=== PATIENT | female | born 1965 | race Caucasian/White ===

== ENCOUNTER 2024-04-04 09:41 | Emergency (ER) | payer OTHER ==
[2024-04-04] MEDS: Lactated Ringers 1,000 ML IV ONE (10:20)
[2024-04-04 10:23] LABS: BASOPHILS ABSOLUTE AUTO 0.01 K/uL (0.02-0.10); BASOPHILS PERCENT AUTO 0.2 % (0.0-0.5); EOSINOPHILS ABSOLUTE AUTO 0.06 K/uL (0.04-0.40); HEMATOCRIT 37.7 % (37.0-47.0); HEMOGLOBIN 13.5 g/dL (11.5-16.5); LYMPHOCYTES ABSOLUTE AUTO 1.36 K/uL (1.50-4.00); LYMPHOCYTES PERCENT AUTO 23.1 % (20.0-40.0); MEAN CORPUSCULAR HEMOGLOBIN 31.2 pg (27.0-32.0); MEAN CORPUSCULAR HGB CONC 35.8 g/dL (31.0-35.0); MEAN CORPUSCULAR VOLUME 87 fL (76-96); MEAN PLATELET VOLUME 8.5 fL (6.0-10.0); MONOCYTES ABSOLUTE AUTO 0.48 K/uL (0.20-0.80); MONOCYTES PERCENT AUTO 8.1 % (3.0-10.0); NEUTROPHILS ABSOLUTE AUTO 3.99 K/uL (2.00-7.50); NEUTROPHILS PERCENT AUTO 67.6 % (45.0-70.0); PLATELET COUNT,PLT 151 K/uL (150-500); RED BLOOD CELL COUNT 4.33 M/uL (3.80-5.80); RED CELL DISTRIBUTION WIDTH 11.8 % (11.0-16.0); WHITE BLOOD CELL COUNT,WBC 5.9 K/uL (4.0-11.0)
[2024-04-04] MEDS: Ondansetron 4 MG/2 ML SDV IVPUSH ONE (10:24)
[2024-04-04 10:33] LABS: ANION GAP 18.9 mmol/L (5.0-15.0); BUN/CREATININE RATIO 15.8 (6-25); CARBON DIOXIDE,CO2 22.9 mmol/L (21.0-32.0); CREATININE 0.57 mg/dL (0.55-1.02); EST CRCL DRUG DOSING (CG) 109.85 mL/min; POTASSIUM,K 3.8 mmol/L (3.5-5.1)
[2024-04-04] MEDS: LORazepam 0.5 MG Tab ONE ×2 (11:58→12:00)
[2024-04-04] MEDS: LORazepam 0.5 MG Tab PO ONE (12:00)
== END 2024-04-04 12:03 | disposition home or self-care (01) ==
LOC: LB.ED 09:41
DX: F32.2 Major depressive disorder, single episode, severe without psychotic features (principal); L24.3 Irritant contact dermatitis due to cosmetics; F41.9 Anxiety disorder, unspecified; F10.10 Alcohol abuse, uncomplicated; Z88.2 Allergy status to sulfonamides; Z88.6 Allergy status to analgesic agent; Z88.8 Allergy status to other drugs, medicaments and biological substances
CPT/HCPCS: 36415; 80048; 80307; 85025; 96361; 96374; 99284-25; A9270-GY; J2405; J7120

== ENCOUNTER 2024-11-05 06:10 | Emergency (ER) | payer OTHER ==
[2024-11-05] MEDS ORDERED: Sodium Chloride 0.9% 10 ML Syringe FLUSH PRN (07:40)
[2024-11-05 08:27] LABS: BASOPHILS ABSOLUTE AUTO 0.02 K/uL (0.02-0.10); BASOPHILS PERCENT AUTO 0.7 % (0.0-0.5); EOSINOPHILS ABSOLUTE AUTO 0.02 K/uL (0.04-0.40); EOSINOPHILS PERCENT AUTO 0.7 % (1.0-5.0); LYMPHOCYTES ABSOLUTE AUTO 1.07 K/uL (1.50-4.00); LYMPHOCYTES PERCENT AUTO 37.2 % (20.0-40.0); MEAN PLATELET VOLUME 9.1 fL (6.0-10.0); MONOCYTES ABSOLUTE AUTO 0.40 K/uL (0.20-0.80); MONOCYTES PERCENT AUTO 13.9 % (3.0-10.0); NEUTROPHILS ABSOLUTE AUTO 1.37 K/uL (2.00-7.50); NEUTROPHILS PERCENT AUTO 47.5 % (45.0-70.0); PLATELET COUNT,PLT 142 K/uL (150-500); RED BLOOD CELL COUNT 4.09 M/uL (3.80-5.80); RED CELL DISTRIBUTION WIDTH 12.5 % (11.0-16.0); WHITE BLOOD CELL COUNT,WBC 2.9 K/uL (4.0-11.0)
[2024-11-05 08:30] LABS: GLUCOSE,URINE NEGATIVE (NEGATIVE); OCCULT BLOOD,URINE TRACE-INTACT (NEGATIVE)
[2024-11-05 08:32] LABS: APPEARANCE,URINE CLOUDY (CLEAR)
[2024-11-05 08:37] LABS: SQUAMOUS EPITHELIAL CELLS,UR OCCASIONAL /HPF
[2024-11-05 08:54] LABS: A/G RATIO 1.3 (0.8-2.0); ALANINE AMINOTRANSFERASE,ALT 37.0 U/L (12-78); ASPARTATE AMNIOTRANSFERASE,AST 42.0 U/L (15-37); BILIRUBIN TOTAL 0.7 mg/dL (0.0-1.0); BLOOD UREA NITROGEN,BUN 9.0 mg/dL (8-26); CARBON DIOXIDE,CO2 29.2 mmol/L (21.0-32.0); CHLORIDE,CL 97.0 mmol/L (98-107); CREATININE 0.42 mg/dL (0.55-1.02); EST CRCL DRUG DOSING (CG) 145.11 mL/min; ESTIMATED GFR 114.0 mL/min (>60); GLUCOSE RANDOM 100.0 mg/dL (74-100); POTASSIUM,K 4.0 mmol/L (3.5-5.1); PROTEIN TOTAL,TP 7.4 g/dL (6.4-8.2); SODIUM,NA 136.0 mmol/L (136-145)
[2024-11-05 09:06] LABS: PHOSPHORUS 3.8 mg/dL (2.5-4.9)
[2024-11-05] MEDS: Sodium Chloride 0.9% 50 ML SDV FLUSH ONE (10:42)
[2024-11-05] MEDS: Iopamidol 755 Mg/ML 100 ML Bottle IV SCH (10:42)
[2024-11-05] MEDS: Magnesium Sulfat/D5W 1GM/100ML 1 GM in Premix Bag 1 BAG IV ONE (12:15)
== END 2024-11-05 13:40 | disposition home or self-care (01) ==
LOC: LB.ED 06:10 → MERGE 06:10 → LB.ED 13:40
DX: N39.0 Urinary tract infection, site not specified (principal); E86.0 Dehydration; E83.42 Hypomagnesemia; R79.89 Other specified abnormal findings of blood chemistry; Z88.2 Allergy status to sulfonamides; Z88.8 Allergy status to other drugs, medicaments and biological substances
CPT/HCPCS: 36415; 70450; 71045; 71275; 80053; 81001; 83735; 83880; 84100; 84484; 85025; 85379; 86140; 87086; 93005; 96361; 96365; 99285; A9270; J3475; J7030; Q9967; 93010; 99284